=== PATIENT | female | born 1950 | race Caucasian/White ===

== ENCOUNTER 2017-06-28 15:30 | Outpatient (CLI) | payer BC | END 2017-06-28 15:31 | disposition home or self-care (01) | LOC: BICRAD 15:30 | PROVIDERS: ATTEND Family Medicine | DX: J40 Bronchitis, not specified as acute or chronic (principal) | CPT/HCPCS: 71020 ==

== ENCOUNTER 2018-11-27 13:11 | Outpatient (CLI) | payer MEDICARE ==
--- NOTE | 2018-11-27 14:07 | MMO ---
Bilateral MAMMO Bilat Diag [facility]. CLINICAL HISTORY: Patient is 68 years old and is seen for diagnostic exam and pain in the right breast at 10 o'clock. The patient has the following family history of breast cancer: 2 maternal aunts, at age 45, premenopausal. The patient has no personal history of cancer. The patient has a history of right Excisional Biopsy at age 18 - benign. VIEWS: The views performed were: bilateral craniocaudal with tomosynthesis; bilateral mediolateral oblique with tomosynthesis; and bilateral mediolateral. FILMS COMPARED: The present examination has been compared to prior imaging studies performed at [facility] on 03/19/2015, 03/29/2016, 05/16/2017, 05/17/2017 and 11/27/2018. MAMMOGRAM FINDINGS: There are scattered fibroglandular densities. Finding 1: There are stable benign appearing calcifications seen in both breasts. There are also vascular calcifications. Finding 2: There is a biopsy clip seen in the right breast. Finding 3: There are no mammographic or sonographic abnormalities to explain the patient's breast pain. The patient is referred back to her clinician. Negative imaging findings should not preclude biopsy if clinical findings are suspicious. There are no suspicious masses, suspicious calcifications, or new areas of architectural distortion. IMPRESSION: FINDING 3: THERE ARE NO MAMMOGRAPHIC ABNORMALITIES TO EXPLAIN THE PATIENT'S BREAST PAIN. THE PATIENT IS REFERRED BACK TO HER CLINICIAN. NEGATIVE IMAGING FINDINGS SHOULD NOT PRECLUDE BIOPSY IF CLINICAL FINDINGS ARE SUSPICIOUS. A ROUTINE FOLLOW-UP MAMMOGRAM IN 1 YEAR IS RECOMMENDED. THE RESULTS OF THIS EXAM WERE SENT TO THE PATIENT. ACR BI-RADS Category 2 - Benign finding MAMMOGRAPHY NOTE: 1. A negative mammogram report should not delay a biopsy if a dominant of clinically suspicious mass is present. 2. Approximately 10% to 15% of breast cancers are not detected by mammography. 3. Adenosis and dense breasts may obscure an underlying neoplasm.
--- NOTE | 2018-11-27 14:18 | ULT ---
LIMITED RIGHT BREAST ULTRASOUND: Date: 11/27/18 PROVIDED CLINICAL HISTORY: Right breast pain. FINDINGS: Limited sonographic interrogation performed of the right breast in the region of patient pain. The so nographic appearance of the breast parenchyma in this region is normal. IMPRESSION: No sonographic or mammographic abnormalities are evident in the region of patient pain. BIRADS Category 2 - Benign findings. POS: OFF
== END 2018-11-27 13:12 | disposition home or self-care (01) ==
LOC: BICMAMMO 13:11
PROVIDERS: ATTEND Obstetrics & Gynecology
DX: N63.10 Unspecified lump in the right breast, unspecified quadrant (principal); Z80.3 Family history of malignant neoplasm of breast; N64.4 Mastodynia
CPT/HCPCS: 76642; 77066; G0279

== ENCOUNTER 2019-03-20 07:59 | Outpatient (CLI) | payer MEDICARE ==
--- NOTE | 2019-03-20 09:04 | CT ---
CT ABDOMEN PELVIS WITH ORAL AND IV CONTRAST: HISTORY: Epigastric pain, weight loss COMPARISON: None FINDINGS: The lung bases are clear. A moderate-sized hiatal hernia is present. No calcified gallstones are note d. No free air, free fluid or lymphadenopathy seen in the abdomen or pelvis. The patient is post hysterectomy. The liver, spleen, pancreas, adrenal glands and right kidney are normal. There is a 2 cm cortical cys t in the left kidney. The small bowel loops are not abnormally dilated. There is colonic diverticulosis without evidence of diverticulitis. A normal-appearing appendix is seen. There are degenerative changes in the spine. Vascular calcifications are present without evidence of aneurysmal dilatation of the abdominal aorta. IMPRESSION: 1. Hiatal hernia 2. Left renal cyst 3. Colonic diverticulosis without diverticulitis.
[2019-03-20] MEDS ORDERED: ISOVUE-370 76%-LOCM 1 ML ONE (09:35)
== END 2019-03-20 08:00 | disposition home or self-care (01) ==
LOC: BICCT 07:59
PROVIDERS: ATTEND Internal Medicine Gastroenterology
DX: R10.13 Epigastric pain (principal); R63.4 Abnormal weight loss; K44.9 Diaphragmatic hernia without obstruction or gangrene; N28.1 Cyst of kidney, acquired; K57.30 Diverticulosis of large intestine without perforation or abscess without bleeding
CPT/HCPCS: 74177; 82565; Q9966

== ENCOUNTER 2019-11-29 13:05 | Outpatient (CLI) | payer MEDICARE ==
--- NOTE | 2019-11-29 13:47 | MMO ---
Bilateral MAMMO Bilat Screen [facility]. CLINICAL HISTORY: Patient is 69 years old and is seen for screening. The patient has the following family history of breast cancer: 2 maternal aunts, at age 45, premenopausal. The patient has no personal history of cancer. The patient has a history of right Excisional Biopsy at age 18 - benign. VIEWS: The views performed were: bilateral craniocaudal with tomosynthesis and bilateral mediolateral oblique with tomosynthesis. FILMS COMPARED: The present examination has been compared to prior imaging studies performed at [facility] on 05/16/2017, 05/17/2017 and 11/27/2018. This study has been interpreted with the assistance of computer-aided detection. MAMMOGRAM FINDINGS: There are scattered fibroglandular densities. Benign calcifications are noted bilaterally. There are no suspicious masses, suspicious calcifications, or new areas of architectural distortion. IMPRESSION: THERE IS NO MAMMOGRAPHIC EVIDENCE OF MALIGNANCY. A ROUTINE FOLLOW-UP MAMMOGRAM IN 1 YEAR IS RECOMMENDED. THE RESULTS OF THIS EXAM WERE SENT TO THE PATIENT. ACR BI-RADS Category 2 - Benign finding MAMMOGRAPHY NOTE: 1. A negative mammogram report should not delay a biopsy if a dominant of clinically suspicious mass is present. 2. Approximately 10% to 15% of breast cancers are not detected by mammography. 3. Adenosis and dense breasts may obscure an underlying neoplasm. Reported by: MAX LAW MD Electonically Signed: [id number]
== END 2019-11-29 13:06 | disposition home or self-care (01) ==
LOC: BICMAMMO 13:05
PROVIDERS: ATTEND Obstetrics & Gynecology
DX: Z12.31 Encounter for screening mammogram for malignant neoplasm of breast (principal); Z80.3 Family history of malignant neoplasm of breast; Z91.89 Other specified personal risk factors, not elsewhere classified
CPT/HCPCS: 77063; 77067

== ENCOUNTER 2020-12-02 14:13 | Outpatient (CLI) | payer MEDICARE | END 2020-12-02 14:14 | disposition home or self-care (01) | LOC: BICMAMMO 14:13 | PROVIDERS: ATTEND Obstetrics & Gynecology | DX: Z12.31 Encounter for screening mammogram for malignant neoplasm of breast (principal); Z91.89 Other specified personal risk factors, not elsewhere classified; Z80.3 Family history of malignant neoplasm of breast | CPT/HCPCS: 77063; 77067 ==

== ENCOUNTER 2021-04-01 20:33 | Inpatient (IN) | payer MEDICARE ==
[2021-04-01 22:26] LABS: #Lymphocytes 1.4 thou/uL (1.20-3.40); #Monocytes 0.8 thou/uL (0.11-0.59); #Neutrophils 3.5 thou/uL (1.40-6.50); %Basophils 0.1 % (0.0-1.0); %Eosinophils 0.4 % (0.0-10.0); %Lymphocytes 24.4 % (21.0-51.0); %Monocytes 14.4 % (0.0-10.0); %Neutrophils 60.8 % (42.0-75.0); Hemoglobin 14.3 g/dL (12.0-16.0); Mean Corpuscular HGB CONC 32.4 g/dL (32.0-36.0); Mean Corpuscular Hemoglobin 26.7 pg (27.0-31.0); Mean Corpuscular Volume 82.5 fL (78.0-98.0); Mean Platelet Volume 8.9 fL (7.4-10.4); Platelet Count 134 thou/uL (130-400); Red Blood Cell (RBC) Count 5.38 mill/uL (4.20-5.40); White Blood Cell (WBC) Count 5.7 thou/uL (4.8-10.8)
[2021-04-01 22:52] LABS: ALT (SGPT) 36 U/L (8-55); AST (SGOT) 50 U/L (5-34); Alkaline Phosphatase 108 U/L (40-110); Anion Gap 14 mmol/L (10-20); BUN (Urea Nitrogen) 9 mg/dL (9.8-20.1); Bilirubin, Total 0.3 mg/dL (0.2-1.2); Calc. Creatinine Clearance 0 mL/min (70-130); Calcium 8.6 mg/dL (7.8-10.44); Carbon Dioxide 24 mmol/L (23-31); Chloride 99 mmol/L (98-107); Globulin 2.4 g/dL (2.4-3.5); Glucose 113 mg/dL (80-115); Potassium 3.6 mmol/L (3.5-5.1); Protein, Total 6.4 g/dL (5.8-8.1); Sodium 133 mmol/L (136-145)
[2021-04-01] MEDS ORDERED: Dexamethasone 4 mg/ml Vial ONE (23:30)
[2021-04-02] MEDS ORDERED: HYDROcodone/Acetaminophen 7.5/325 mg Tablet PO PRN (00:16)
[2021-04-02] MEDS ORDERED: hydrALAZINE 20 MG/ML VIAL SLOW IVP PRN (00:18)
[2021-04-02] MEDS ORDERED: Albuterol 200 PUFF (6.7GM INHALER) INH PRN (00:20)
[2021-04-02 03:20] VITALS: BMI 35.4
[2021-04-02 04:43] LABS: #Lymphocytes 0.9 thou/uL (1.20-3.40); #Monocytes 0.3 thou/uL (0.11-0.59); #Neutrophils 2.9 thou/uL (1.40-6.50); %Basophils 0.4 % (0.0-1.0); %Eosinophils 0.2 % (0.0-10.0); %Lymphocytes 21.5 % (21.0-51.0); %Monocytes 6.1 % (0.0-10.0); %Neutrophils 71.8 % (42.0-75.0); Hemoglobin 13.3 g/dL (12.0-16.0); Mean Corpuscular HGB CONC 33.8 g/dL (32.0-36.0); Mean Corpuscular Hemoglobin 28.1 pg (27.0-31.0); Mean Corpuscular Volume 83.4 fL (78.0-98.0); Mean Platelet Volume 8.4 fL (7.4-10.4); Platelet Count 129 thou/uL (130-400); RBC Distribution Width 12.8 % (11.5-14.5); Red Blood Cell (RBC) Count 4.74 mill/uL (4.20-5.40)
[2021-04-02 04:56] LABS: ALT (SGPT) 33 U/L (8-55); AST (SGOT) 50 U/L (5-34); Albumin 3.6 g/dL (3.4-4.8); Alkaline Phosphatase 93 U/L (40-110); Anion Gap 12 mmol/L (10-20); BUN (Urea Nitrogen) 8 mg/dL (9.8-20.1); Bilirubin, Total 0.3 mg/dL (0.2-1.2); Calc. Creatinine Clearance 92 mL/min (70-130); Carbon Dioxide 25 mmol/L (23-31); Chloride 103 mmol/L (98-107); Globulin 2.7 g/dL (2.4-3.5); Glucose 137 mg/dL (80-115); Potassium 3.9 mmol/L (3.5-5.1); Protein, Total 6.3 g/dL (5.8-8.1); Sodium 136 mmol/L (136-145)
[2021-04-02] MEDS ORDERED: Zinc Sulfate 220 MG CAP ONE (08:23)
[2021-04-02] MEDS ORDERED: Famotidine 20 MG TAB ONE (08:23)
[2021-04-02] MEDS ORDERED: Dexamethasone 10 MG/ML VIAL SLOW IVP SCH (09:00)
[2021-04-02] MEDS ORDERED: Dexamethasone 10 MG in Sodium Chloride 0.9% 50 ML IVPB SCH (09:00)
[2021-04-02] MEDS: Famotidine 20 MG TAB PO SCH ×2 (10:14→20:39)
[2021-04-02] MEDS: guaiFENesin ER 600 MG TAB PO SCH ×2 (10:14→20:39)
[2021-04-02] MEDS: Zinc Sulfate 220 MG CAP PO SCH (10:14)
[2021-04-02] MEDS ORDERED: Dexamethasone 4 mg/ml Vial ONE (10:41)
[2021-04-02] MEDS: Lactated Ringer's 1,000 ML IV SCH ×2 (12:24→20:39)
[2021-04-02] MEDS: Acetaminophen 325 MG TAB PO PRN (17:15)
[2021-04-02] MEDS: Dexamethasone 10 MG/ML VIAL SLOW IVP SCH (20:38)
[2021-04-03] MEDS: Acetaminophen 325 MG TAB PO PRN (04:24)
[2021-04-03 05:28] LABS: #Monocytes 0.5 thou/uL (0.11-0.59); #Neutrophils 3.2 thou/uL (1.40-6.50); %Basophils 0.5 % (0.0-1.0); %Eosinophils 0.1 % (0.0-10.0); %Lymphocytes 20.6 % (21.0-51.0); %Neutrophils 67.8 % (42.0-75.0); Hemoglobin 13.4 g/dL (12.0-16.0); Mean Corpuscular HGB CONC 33.3 g/dL (32.0-36.0); Mean Corpuscular Hemoglobin 27.8 pg (27.0-31.0); Mean Corpuscular Volume 83.3 fL (78.0-98.0); Mean Platelet Volume 8.7 fL (7.4-10.4); Platelet Count 139 thou/uL (130-400); RBC Distribution Width 12.7 % (11.5-14.5); Red Blood Cell (RBC) Count 4.82 mill/uL (4.20-5.40); White Blood Cell (WBC) Count 4.7 thou/uL (4.8-10.8)
[2021-04-03 05:46] LABS: Anion Gap 11 mmol/L (10-20); BUN (Urea Nitrogen) 10 mg/dL (9.8-20.1); Calc. Creatinine Clearance 97 mL/min (70-130); Calcium 8.9 mg/dL (7.8-10.44); Carbon Dioxide 28 mmol/L (23-31); Chloride 103 mmol/L (98-107); Glucose 193 mg/dL (80-115); Potassium 3.9 mmol/L (3.5-5.1); Sodium 138 mmol/L (136-145)
[2021-04-03] MEDS: Famotidine 20 MG TAB PO SCH ×2 (08:12→20:48)
[2021-04-03] MEDS: Zinc Sulfate 220 MG CAP PO SCH (08:12)
[2021-04-03] MEDS: guaiFENesin ER 600 MG TAB PO SCH ×2 (08:12→20:49)
[2021-04-03] MEDS: Dexamethasone 10 MG/ML VIAL SLOW IVP SCH ×2 (10:23→20:49)
[2021-04-03] MEDS ORDERED: guaiFENesin/Codeine 200 mg/20 mg 10 ml Cup PO PRN (15:39)
[2021-04-03] MEDS: Lactated Ringer's 1,000 ML IV SCH (16:13)
[2021-04-03] MEDS ORDERED: traZODone HCl 50 MG TAB PO SCH (21:34)
[2021-04-04] MEDS: Lactated Ringer's 1,000 ML IV SCH (06:19)
[2021-04-04] MEDS: Famotidine 20 MG TAB PO SCH ×2 (08:31→21:30)
[2021-04-04] MEDS: Dexamethasone 10 MG/ML VIAL SLOW IVP SCH (08:31)
[2021-04-04] MEDS: guaiFENesin ER 600 MG TAB PO SCH ×2 (08:31→21:30)
[2021-04-04] MEDS: Zinc Sulfate 220 MG CAP PO SCH (08:31)
[2021-04-04] MEDS: Enoxaparin Sodium 40 MG/0.4 ML SYRINGE SC SCH (10:35)
[2021-04-04] MEDS ORDERED: Non-Formulary Item 1 EACH (Bisoprolol Fumarate [Bisoprolol Fumarate] 10 MG Tablet) PO SCH (21:00)
[2021-04-04] MEDS ORDERED: Amlodipine 5 MG TAB PO SCH (21:00)
[2021-04-04] MEDS: Rosuvastatin 20 MG TAB PO SCH (21:29)
[2021-04-04] MEDS: Aspirin 81 mg Enteric Coated Tablet PO SCH (21:29)
[2021-04-04] MEDS: traZODone HCl 50 MG TAB PO SCH (21:29)
[2021-04-05 08:18] LABS: #Lymphocytes 1.5 thou/uL (1.20-3.40); #Monocytes 1.1 thou/uL (0.11-0.59); #Neutrophils 7.6 thou/uL (1.40-6.50); %Basophils 0.1 % (0.0-1.0); %Eosinophils 0.1 % (0.0-10.0); %Lymphocytes 14.6 % (21.0-51.0); %Monocytes 10.9 % (0.0-10.0); %Neutrophils 74.4 % (42.0-75.0); Hemoglobin 13.4 g/dL (12.0-16.0); Mean Corpuscular HGB CONC 31.9 g/dL (32.0-36.0); Mean Corpuscular Hemoglobin 26.6 pg (27.0-31.0); Mean Corpuscular Volume 83.4 fL (78.0-98.0); Mean Platelet Volume 9.2 fL (7.4-10.4); Platelet Count 187 thou/uL (130-400); RBC Distribution Width 12.8 % (11.5-14.5); Red Blood Cell (RBC) Count 5.03 mill/uL (4.20-5.40); White Blood Cell (WBC) Count 10.2 thou/uL (4.8-10.8)
[2021-04-05 08:47] LABS: ALT (SGPT) 68 U/L (8-55); AST (SGOT) 44 U/L (5-34); Albumin 3.4 g/dL (3.4-4.8); Alkaline Phosphatase 84 U/L (40-110); Anion Gap 13 mmol/L (10-20); BUN (Urea Nitrogen) 16 mg/dL (9.8-20.1); Bilirubin, Total 0.3 mg/dL (0.2-1.2); Calc. Creatinine Clearance 99 mL/min (70-130); Calcium 8.9 mg/dL (7.8-10.44); Carbon Dioxide 29 mmol/L (23-31); Chloride 103 mmol/L (98-107); Globulin 2.2 g/dL (2.4-3.5); Glucose 121 mg/dL (80-115); Potassium 3.7 mmol/L (3.5-5.1); Protein, Total 5.6 g/dL (5.8-8.1); Sodium 141 mmol/L (136-145)
[2021-04-05] MEDS ORDERED: Dexamethasone 10 MG/ML VIAL SLOW IVP SCH (09:00)
[2021-04-05] MEDS: Bupropion 150 MG XL TAB PO SCH (09:05)
[2021-04-05] MEDS: guaiFENesin ER 600 MG TAB PO SCH ×2 (09:05→21:27)
[2021-04-05] MEDS: Zinc Sulfate 220 MG CAP PO SCH (09:05)
[2021-04-05] MEDS: Famotidine 20 MG TAB PO SCH ×2 (09:06→21:28)
[2021-04-05 13:17] LABS: Bacteria/HPF None Seen HPF (None Seen); Bilirubin Negative (Negative); Blood, Urine Negative (Negative); Clarity Clear (Clear); Glucose, Urine (Dipstick) Normal (Negative); Ketone, Urine Negative (Negative); Leukocyte 25 Leu/uL (Negative); Nitrite Negative (Negative); Protein, Urine (Dipstick) Negative (Neg-Trace); RBC/HPF 0-3 HPF (0-3); Specific Gravity, Urine 1.017 (1.002-1.036); Squamous Epithelial 0-3 HPF (0-3); Urobilinogen Normal mg/dL (Less than 2); WBC/HPF 0-3 HPF (0-3); pH, Urine 7.5 (5.0-9.0)
[2021-04-05 13:35] LABS: Urine Culture Reflex Yes Yes
[2021-04-05] MEDS: Aspirin 81 mg Enteric Coated Tablet PO SCH (21:27)
[2021-04-05] MEDS: traZODone HCl 50 MG TAB PO SCH (21:27)
[2021-04-05] MEDS: Rosuvastatin 20 MG TAB PO SCH (21:27)
[2021-04-05] MEDS: Enoxaparin Sodium 40 MG/0.4 ML SYRINGE SC SCH (21:28)
[2021-04-05] MEDS: Acetaminophen 325 MG TAB PO PRN (21:41)
[2021-04-06 06:10] LABS: #Lymphocytes 1.5 thou/uL (1.20-3.40); #Monocytes 1.1 thou/uL (0.11-0.59); %Eosinophils 0.1 % (0.0-10.0); %Lymphocytes 17.7 % (21.0-51.0); %Neutrophils 69.3 % (42.0-75.0); Hemoglobin 13.1 g/dL (12.0-16.0); Mean Corpuscular HGB CONC 33.7 g/dL (32.0-36.0); Mean Corpuscular Hemoglobin 28.1 pg (27.0-31.0); Mean Corpuscular Volume 83.2 fL (78.0-98.0); Mean Platelet Volume 8.9 fL (7.4-10.4); Platelet Count 200 thou/uL (130-400); RBC Distribution Width 12.6 % (11.5-14.5); Red Blood Cell (RBC) Count 4.66 mill/uL (4.20-5.40); White Blood Cell (WBC) Count 8.6 thou/uL (4.8-10.8)
[2021-04-06 06:34] LABS: Anion Gap 12 mmol/L (10-20); BUN (Urea Nitrogen) 16 mg/dL (9.8-20.1); CRP (Inflammatory) Less than 0.50 mg/dL (= or < 0.5); Calc. Creatinine Clearance 99 mL/min (70-130); Calcium 8.7 mg/dL (7.8-10.44); Carbon Dioxide 31 mmol/L (23-31); Chloride 99 mmol/L (98-107); Glucose 109 mg/dL (80-115); Potassium 3.6 mmol/L (3.5-5.1); Sodium 138 mmol/L (136-145)
[2021-04-06] MEDS ORDERED: Dexamethasone 4 MG TAB PO SCH (08:00)
[2021-04-06] MEDS ORDERED: Spironolactone 25 MG TAB PO SCH ×2 (09:00)
[2021-04-06] MEDS: Acetaminophen 325 MG TAB PO PRN (09:03)
[2021-04-06] MEDS: Zinc Sulfate 220 MG CAP PO SCH (09:03)
[2021-04-06] MEDS: Famotidine 20 MG TAB PO SCH (09:04)
[2021-04-06] MEDS: guaiFENesin ER 600 MG TAB PO SCH (09:04)
[2021-04-06] MEDS: Bupropion 150 MG XL TAB PO SCH (09:05)
[2021-04-06 13:12] VITALS: BP 111/76; TEMP 98.3
== END 2021-04-06 13:32 | disposition home or self-care (01) | DRG 177 ==
LOC: ERS 20:33 → ERHOLD 04-02 00:16 → T4-B 04-02 13:53
PROVIDERS: ADMIT Internal Medicine; ATTEND Hospitalist
PROC: 3E0333Z Introduction of Anti-inflammatory into Peripheral Vein, Percutaneous Approach (ICD-10-PCS; principal; 2021-04-01)
PROC: 8E0ZXY6 Isolation (ICD-10-PCS; 2021-04-01)
DX: U07.1 COVID-19 (principal); J12.82 Pneumonia due to coronavirus disease 2019; J96.01 Acute respiratory failure with hypoxia; F33.9 Major depressive disorder, recurrent, unspecified; J43.9 Emphysema, unspecified; E78.5 Hyperlipidemia, unspecified; I10 Essential (primary) hypertension; M19.90 Unspecified osteoarthritis, unspecified site; F41.9 Anxiety disorder, unspecified; E66.9 Obesity, unspecified; Z68.35 Body mass index [BMI] 35.0-35.9, adult; Z88.1 Allergy status to other antibiotic agents; Z88.2 Allergy status to sulfonamides; Z90.710 Acquired absence of both cervix and uterus; Z79.899 Other long term (current) drug therapy; Z79.82 Long term (current) use of aspirin; Z79.51 Long term (current) use of inhaled steroids
CPT/HCPCS: 36415; 71045; 80048; 80053; 81001; 82728; 83605; 84484; 85025; 86140; 87086; 93005; 94760; 96372; 96374; J0500; J1100; J1650; J7120; J8540; U0003; U0005

== ENCOUNTER 2021-04-20 13:25 | Outpatient (CLI) | payer MEDICARE | END 2021-04-20 13:26 | disposition home or self-care (01) | LOC: BICRAD 13:25 | PROVIDERS: ATTEND Family Medicine | DX: U07.1 COVID-19 (principal); J12.82 Pneumonia due to coronavirus disease 2019 | CPT/HCPCS: 71046 ==

== ENCOUNTER 2021-12-06 11:59 | Outpatient (CLI) | payer MEDICARE | END 2021-12-06 12:00 | disposition home or self-care (01) | LOC: BICMAMMO 11:59 | PROVIDERS: ATTEND Obstetrics & Gynecology | DX: Z12.31 Encounter for screening mammogram for malignant neoplasm of breast (principal); Z80.3 Family history of malignant neoplasm of breast; Z91.89 Other specified personal risk factors, not elsewhere classified | CPT/HCPCS: 77063; 77067 ==

== ENCOUNTER 2023-03-20 12:07 | Outpatient (CLI) | payer MEDICARE | END 2023-03-20 12:08 | disposition home or self-care (01) | LOC: DTY/OP 12:07 | PROVIDERS: ATTEND Surgery | DX: K21.9 Gastro-esophageal reflux disease without esophagitis (principal) | CPT/HCPCS: 97802 ==

== ENCOUNTER 2023-05-16 15:02 | Outpatient (CLI) | payer MEDICARE | END 2023-05-16 15:03 | disposition home or self-care (01) | LOC: SCSRAD 15:02 | PROVIDERS: ATTEND Family Medicine | DX: S89.91XA Unspecified injury of right lower leg, initial encounter (principal) ==

== ENCOUNTER 2024-01-04 08:16 | Outpatient (CLI) | payer MEDICARE | END 2024-01-04 08:17 | disposition home or self-care (01) | LOC: BICRAD 08:16 | PROVIDERS: ATTEND Family Medicine | DX: R05.9 Cough, unspecified (principal); K44.9 Diaphragmatic hernia without obstruction or gangrene | CPT/HCPCS: 71046 ==

== ENCOUNTER 2024-03-14 11:40 | Outpatient (CLI) | payer MEDICARE | END 2024-03-14 11:41 | disposition home or self-care (01) | LOC: BICMAMMO 11:40 | PROVIDERS: ATTEND Obstetrics & Gynecology | DX: Z12.31 Encounter for screening mammogram for malignant neoplasm of breast (principal); Z80.3 Family history of malignant neoplasm of breast; Z91.89 Other specified personal risk factors, not elsewhere classified | CPT/HCPCS: 77063; 77067 ==